=== PATIENT | female | born 1975 | race Caucasian/White ===

== ENCOUNTER 2017-01-29 13:42 | Inpatient (IN) | payer BC ==
[~2017-01-29] VITALS: Ht 167.6 cm; Wt 71.1 kg
[~2017-01-29 13:42] MED LIST: MOTRIN 800800 MG/TAB PO; PERCOCET 325 MG1 TA2 PO; PRENATAL VITAMI1 TA5 PO
[2017-03-12] VITALS (50 sets, daily range): BP systolic 88–123; BP diastolic 50–72; PULSE 49–89; TEMP 97.7–99.2
[2017-03-12 07:53] LABS: MEAN CELL VOLUME 93 fl (80.0-100.0); MEAN CORPUSCULAR HGB CONC 34 g/dl (33.0-37.0); MEAN PLATELET VOLUME 11.2 fl (7.4-10.4); PLATELET COUNT 103 K/mm3 (130-400); RED BLOOD COUNT 3.48 M/mm3 (4.10-5.30); REDCELL DISTRIBUTION WIDTH-CV 14.6 % (11.5-14.5); WHITE BLOOD COUNT 6.9 K/mm3 (4.8-10.8)
[2017-03-12 07:56] LABS: HEMATOCRIT 32.3 % (37.0-47.0); MEAN CORPUSCULAR HEMOGLOBIN 32 pg (27.0-31.0)
[2017-03-12 07:57] LABS: ADD PATHOLOGY DIFF REVIEW NO
[2017-03-12 08:24] LABS: BAND 13 % (0-10); NEUTROPHILS 66 % (42.0-75.2); PLATELET ESTIMATE NORMAL (NORMAL); TOTAL CELLS COUNTED 100
[2017-03-13 00:40] VITALS: BP 97/53; PULSE 50; TEMP 98.5
[2017-03-13 07:29] VITALS: BP 104/60; PULSE 67; TEMP 98
[2017-03-13 17:00] VITALS: BP 100/66; PULSE 74; TEMP 98
[2017-03-13 21:00] VITALS: BP 93/55; PULSE 62; TEMP 97.7
[2017-03-14] MEDS ORDERED: IBU800 M1 PO (08:19)
[2017-03-14] MEDS ORDERED: PERCOCET 325 MG1 TA2 PO (08:19)
[2017-03-14 09:10] VITALS: BP 93/59; PULSE 61; TEMP 97.8
== END 2017-03-14 11:35 | disposition home or self-care (01) | DRG 775 ==
LOC: LDR 03-12 07:04 → OB 03-12 07:10 → LDR 03-12 07:10 → OB 03-12 21:30 → EDSTATUS 03-13 07:03 → LDRO 03-13 13:41 → OB 03-14 11:35
PROVIDERS: Obstetrics & Gynecology
PROC: 10E0XZZ Delivery of Products of Conception, External Approach (ICD-10-PCS; principal; 2017-03-12)
PROC: 0KQM0ZZ Repair Perineum Muscle, Open Approach (ICD-10-PCS; 2017-03-12)
PROC: 3E033VJ Introduction of Other Hormone into Peripheral Vein, Percutaneous Approach (ICD-10-PCS; 2017-03-12)
DX: O70.1 Second degree perineal laceration during delivery (principal); Z3A.39 39 weeks gestation of pregnancy; Z37.0 Single live birth
CPT/HCPCS: J2590; J2795; J7120

== ENCOUNTER → 2019-12-22 | Outpatient (CLI) | payer BC ==
[~2019-12-22] MED LIST changes: +IBU800 M1 PO
== END ==
LOC: MC.RAD 10-23 08:15
DX: Z12.31 Encounter for screening mammogram for malignant neoplasm of breast (principal)

== ENCOUNTER → 2021-02-14 | Outpatient (CLI) | payer BC | LOC: MC.RAD 13:30 | DX: Z12.31 Encounter for screening mammogram for malignant neoplasm of breast (principal) ==

== ENCOUNTER → 2022-03-28 | Outpatient (CLI) | payer BC | LOC: MC.RAD 08:45 | DX: Z12.31 Encounter for screening mammogram for malignant neoplasm of breast (principal) ==

== ENCOUNTER → 2023-05-07 | Outpatient (CLI) | payer BC | LOC: MC.RAD 11:28 | DX: Z12.31 Encounter for screening mammogram for malignant neoplasm of breast (principal) ==